=== PATIENT | male | born 1950 | race Caucasian/White ===

== ENCOUNTER → 2018-02-14 | Outpatient (CLI) | payer MEDICARE, BC ==
[2018-02-14 11:19] LABS: HCT 47.1 % (39.0-53.0); HGB 15.6 gm/dL (13.0-17.5); MCH 29.7 pg (25.0-35.0); MCHC 33.1 g/dL (31.0-37.0); MCV 89.8 fL (80.0-100.0); Mean Platelet Volume 7.1; Platelet Count 295 k/uL (150-450); RBC 5.25 m/uL (4.30-5.90); RDW 13.7 % (11.5-15.5)
[2018-02-14 17:16] LABS: Albumin 4.5 g/dL (3.80-4.90); Albumin/Globulin Ratio 2.81 (1.20-2.10); Calcium 9.5 mg/dL (8.7-10.3); Globulin 1.6 g/dL (2.1-3.7); LDL Cholesterol,Calculated 87.4 mg/dL (0.0-131.0); Potassium 4.2 mmol/L (3.5-5.5); Total Bilirubin 0.5 mg/dL (0.2-1.2); Total Protein 6.1 g/dL (6.2-8.2); VLDL Calculation 30.6 mg/dL (5.00-40.00)
== END | disposition home or self-care (01) ==
LOC: LABWHC1 10:21
PROVIDERS: ATTEND Internal Medicine
DX: E87.8 Other disorders of electrolyte and fluid balance, not elsewhere classified (principal); E78.41 Elevated Lipoprotein(a); N40.0 Benign prostatic hyperplasia without lower urinary tract symptoms; R53.83 Other fatigue
CPT/HCPCS: 80061; 80053; 85027; 36415; G0103

== ENCOUNTER → 2018-11-21 | Outpatient (CLI) | payer MEDICARE ==
[2018-11-21 11:09] LABS: Basophils # (A) 0.2 k/uL (0-0.2); Basophils % (A) 3 %; Eosinophils # (A) 0.2 k/uL (0-0.7); Eosinophils % (A) 3 %; HCT 45.2 % (39.0-53.0); Lymphocytes # (A) 1.8 k/uL (1.0-4.8); Lymphocytes % (A) 27 %; MCH 29.6 pg (25.0-35.0); MCHC 33.1 g/dL (31.0-37.0); MCV 89.5 fL (80.0-100.0); Mean Platelet Volume 7.4; Monocytes # (A) 0.4 k/uL (0-1.0); Monocytes % (A) 6 %; Neutrophils # (A) 3.9 k/uL (1.3-7.7); Neutrophils % (A) 59 %; Platelet Count 302 k/uL (150-450); RBC 5.05 m/uL (4.30-5.90); RDW 13.9 % (11.5-15.5); WBC 6.7 k/uL (3.8-10.6)
== END | disposition home or self-care (01) ==
LOC: LABPAT 09:18
PROVIDERS: ATTEND Surgery
DX: Z01.818 Encounter for other preprocedural examination (principal); Z01.812 Encounter for preprocedural laboratory examination; K43.2 Incisional hernia without obstruction or gangrene
CPT/HCPCS: 36415; 85025; 93005

== ENCOUNTER 2018-11-28 11:53 | Day surgery (SDC) | payer BC, MEDICARE ==
[2018-11-20 14:46] VITALS: BMI 26.3
[~2018-11-28 11:53] MED LIST: DEXAMETHASONE SOD PHOSPHATE 10 MG/ML 1 ML VIAL IV ONE; HEPARIN SODIUM,PORCINE 5,000 UNIT/ML 1 ML VIAL SQ ONE; HYDROmorphone 0.5 MG/0.5 ML SYRINGE IVP PRN; LIDOCAINE 1% 20 ML VIAL (10MG/ML) FOR IV START INTRADERMA PRN; ONDANSETRON 4 MG/2 ML VIAL IVP ONE; SCOPOLAMINE 1.5MG/72HR PATCH TRANSDERM ONE
[2018-11-28] MEDS: LACTATED RINGERS 1,000 ML IV SCH ×2 (12:59→19:57)
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
[2018-11-28] MEDS ORDERED: BUPIVACAINE (PF) 0.25% 30 ML VIAL SQ ONE (13:49)
--- NOTE | 2018-11-28 13:56 | P.ANPRN ---
Procedure Note - Anesthesia - Nerve Block Performed Bilateral Transversus Abdominis Single Time Out Performed: Yes Date of Procedure: 11/28/18 Procedure Start Time: 13:45 Procedure Stop Time: 13:55 Location of Patient Procedure: PreOp Indication: Acute Post-Operative Pain, Requested by Surgeon Sedation Type: Sedate with meaningful contact maintained Preparation: Sterile Prep Position: Supine Catheter: None Needle Types: Pajunk Needle Gauge: 21 Ultrasound used to visualize needle placement: Yes Ultrasound used to observe medication spread: Yes Injectate: 0.5% Ropivacaine (see comment for volume) (15 CC + 2MG DEXAMETHASONE PER SIDE) Blood Aspirated: No Pain Paresthesia on Injection Noted: No Resistance on Injection: Normal Image Stored and Saved: Yes Events: Uneventful and Well Tolerated
[2018-11-28] MEDS ORDERED: fentaNYL (PF) 50 MCG/ML 2 ML AMP ONE (13:59)
[2018-11-28] MEDS ORDERED: ROPIVACAINE 5 MG/ML 30 ML VIAL ONE (13:59)
[2018-11-28] MEDS ORDERED: MIDAZOLAM 2 MG/2 ML VIAL ONE (13:59)
[2018-11-28] MEDS ORDERED: ePHEDrine SULFATE/0.9% NACL/PF 50 MG/5 ML SYRINGE IV ONE (13:59)
[2018-11-28] MEDS ORDERED: GLYCOPYRROLATE 0.2 MG/ML 2 ML VIAL ONE (13:59)
[2018-11-28] MEDS ORDERED: PHENYLEPHRINE-0.9% NACL SYG 1 MG/10 ML SYRINGE ONE (13:59)
[2018-11-28] MEDS ORDERED: NEOSTIGMINE 1 MG/ML 10 ML VIAL ONE (13:59)
[2018-11-28] MEDS ORDERED: PROPOFOL 10 MG/ML 20 ML VIAL IV ONE (13:59)
[2018-11-28] MEDS ORDERED: ROCURONIUM BROMIDE 10 MG/ML 10 ML VIAL IV ONE (13:59)
[2018-11-28] MEDS ORDERED: DEXAMETHASONE SOD PHOSPHATE 4 MG/ML 1 ML VIAL ONE (13:59)
[2018-11-28] MEDS ORDERED: LIDOCAINE 1% INJ 10MG/ML (20 ML MDV) ONE (13:59)
[2018-11-28] MEDS ORDERED: LACTATED RINGERS 1,000 ML IV ONE ×2 (14:45→15:46)
[2018-11-28] MEDS ORDERED: TAMSULOSIN 0.4 MG CAP.ER.24H PO STA (15:52)
[2018-11-28] MEDS ORDERED: NALOXONE 0.4 MG/ML 1 ML VIAL IV PRN (15:57)
[2018-11-28] MEDS ORDERED: HYDROmorphone 0.5 MG/0.5 ML SYRINGE IVP PRN (15:57)
--- NOTE | 2018-11-28 16:01 | P.OP ---
Date of Procedure: 11/28/18 Procedure(s) Performed: PREOPERATIVE DIAGNOSIS: Incarcerated incisional hernia POSTOPERATIVE DIAGNOSIS: Same PROCEDURE: Incarcerated incisional hernia with mesh SURGEON: Guy EBL: Minimal ANESTHESIA: Gen. COMPLICATIONS: None OPERATIVE PROCEDURE: Patient placed on the operating table in the supine position. Abdomen was prepped and draped in usual sterile fashion. The previous incision was re-incised superiorly. Dissection through the subcutaneous tissues took place using electrocautery. A large hernia was identified. The hernia sac was carefully dissected down to the level of the fascia where it was excised. The patient had a total of 2 fascial openings. One measured about 2.5 cm in diameter the other measured about 1.5 cm in diameter. There was a thin bridge of fibrous tissue between the 2 fascial defects that was excised. Diameter of the fascial defect now was 5 x 3 cm. The 8 x 8 cm ventral ex mesh was then placed beneath the fascia. We did excise a portion of the omentum that was adherent to the hernia sac. The mesh was sutured to the fascia using trans-fascial 0 Ethibond sutures. Following that the fascia was reapproximated using interrupted vest over pants 0 Ethibond sutures. The folding edge was also sutured down using 0 Ethibond sutures. The subcutaneous tissues were closed using 20 and 3-0 Vicryl sutures. The skin was closed using 4-0 Monocryl suture. Skin glue and sterile dressings were applied. DISPOSITION: Stable to recovery room
[2018-11-28] MEDS ORDERED: HYDROmorphone 1 MG/ML 1 ML SYRINGE IVP ONE ×4 (16:02→16:28)
[2018-11-28] MEDS ORDERED: diphenhydrAMINE 50 MG/ML 1 ML VIAL IVP ONE (16:32)
[2018-11-28 17:12] VITALS: RESP 18
[2018-11-28] MEDS ORDERED: HYDROcodone/APAP 5-325MG 1 EACH TAB PO ONE ×2 (17:20→17:27)
[2018-11-28] MEDS: DOCUSATE 100 MG CAP PO SCH (20:54)
[2018-11-28] MEDS: HYDROcodone/APAP 5-325MG 1 EACH TAB PO PRN (23:25)
[2018-11-29] MEDS: HYDROcodone/APAP 5-325MG 1 EACH TAB PO PRN (07:50)
[2018-11-29] MEDS: DOCUSATE 100 MG CAP PO SCH (07:50)
[2018-11-29 10:26] VITALS: BP 142/71; PULSE 81; TEMP 97.9
--- NOTE | 2018-11-29 10:40 | P.DS ---
Providers Expected date of discharge: 11/29/18 Attending physician: Ahsan Tovar Primary care physician: Adolph Henriquez - Discharge Diagnosis(es) (1) Incisional hernia Patient doing well today. He was admitted yesterday evening for urinary retention after incisional hernia repair. She has minimal pain at this time. He is ambulate him. Voiding without difficulty. We'll discharge today. Plan outpatient follow-up in 1 week. Current Visit: Yes Status: Acute Plan - Discharge Summary Discharge Rx Participant: Yes New Discharge Prescriptions: New Hydrocodone/Acetaminophen [[place] 5-325] 1 tab PO Q6HR PRN 3 Days #10 tab PRN Reason: Pain No Action Aspirin 81 mg PO DAILY Tamsulosin [Flomax] 0.4 mg PO BID amLODIPine [Norvasc] 10 mg PO DAILY Losartan/Hydrochlorothiazide [Losartan-Hctz 100-25 mg Tab] 1 each PO DAILY Discharge Medication List Aspirin 81 mg PO DAILY 10/14/13 [History] Losartan/Hydrochlorothiazide [Losartan-Hctz 100-25 mg Tab] 1 each PO DAILY 11/20/18 [History] Tamsulosin [Flomax] 0.4 mg PO BID 11/20/18 [History] amLODIPine [Norvasc] 10 mg PO DAILY 11/20/18 [History] Hydrocodone/Acetaminophen [[place] 5-325] 1 tab PO Q6HR PRN 3 Days #10 tab 11/28/18 [Rx] Follow up Appointment(s)/Referral(s): Ahsan Tovar MD [Medical Doctor] - 12/03/18 3:20 pm Patient Instructions/Handouts: *Surgery [facility] - (Anesthesia) Discharge Instructions Outpatient Surgery
== END 2018-11-29 11:59 | disposition home or self-care (01) ==
LOC: OR 11:53 → 4SSUR 15:56 → OR 11-29 11:59
PROVIDERS: ATTEND Surgery
DX: K43.0 Incisional hernia with obstruction, without gangrene (principal); I10 Essential (primary) hypertension; M10.9 Gout, unspecified; K21.9 Gastro-esophageal reflux disease without esophagitis; N42.9 Disorder of prostate, unspecified; K57.90 Diverticulosis of intestine, part unspecified, without perforation or abscess without bleeding; F17.210 Nicotine dependence, cigarettes, uncomplicated; Z79.82 Long term (current) use of aspirin; Z79.899 Other long term (current) drug therapy; Z90.49 Acquired absence of other specified parts of digestive tract; Z90.89 Acquired absence of other organs; Z98.890 Other specified postprocedural states; Z86.010 Personal history of colon polyps; Z80.9 Family history of malignant neoplasm, unspecified; Z82.49 Family history of ischemic heart disease and other diseases of the circulatory system
CPT/HCPCS: 64488; 88305; 84132; 49561; 49568; C1781; J2250; J1200; J1644; J1100 ×2; J2710; J0690; J2405; J2001; J3010; J1170; J2795; J2370; J2704

== ENCOUNTER → 2022-11-24 | Outpatient (CLI) | payer MEDICARE ==
--- NOTE | 2022-11-24 17:08 | PE ---
EXAMINATION TYPE: PET CT fusion skull to thigh DATE OF EXAM: 11/24/2022 COMPARISON: NONE HISTORY: Solitary pulmonary nodule TECHNIQUE: Following the intravenous administration of 13.43 mCi of F-18 FDG, whole body images are performed from the skull base to the midthigh. Images are reviewed on the computer in the coronal, a xial, and sagittal planes. Reconstructed rotating images are created on independent workstation and reviewed on the computer. A localization and attenuation correction CT is performed in conjunction with the PET scan. Blood glucose level equals 98 SCAN: Initial Scan FINDINGS: SKULL BASE AND NECK: No areas of abnormal hypermetabolic uptake. CHEST, MEDIASTINUM, AND HILAR REGION: There are scattered small predominantly right-sided pulmonary n odules all measuring greater than 1 cm in size, for reference there are 4-5 nodules noted axial image 104. No abnormal hypermetabolic uptake is seen. No abnormal hypermetabolic uptake in the entire thor ax. ABDOMEN AND PELVIS: Normal excretion. No hypermetabolic adrenal masses. No abnormal hypermetabolic up take. OSSEOUS STRUCTURES: No abnormal hypermetabolic uptake. OTHER CT: Coronary artery calcification is present which is noted marker for underlying coronary belem ry disease. Moderate calcified plaque bilateral carotid bulb level is seen. Some colonic diverticula are present. Mild to moderate calcified plaque of the aorta extends into branch vessels. Moderate abiola rowing and spurring of both hip joints is seen. Multilevel spurring in the thoracolumbar spine is pre sent. IMPRESSION: Subcentimeter predominantly right-sided pulmonary nodules. No abnormal hypermetabolic nod ules or masses to suggest malignancy. Advise CT or PET CT follow-up in 6-12 months time to reassess.
== END | disposition home or self-care (01) ==
LOC: RADPETMAIN 10:53
PROVIDERS: ATTEND Internal Medicine
DX: R91.8 Other nonspecific abnormal finding of lung field (principal)
CPT/HCPCS: 78815; A9552

== ENCOUNTER → 2023-07-15 | Outpatient (CLI) | payer MEDICARE ==
[2023-07-15 14:42] LABS: African American GFR (CKD) >90 (>60 ml/min/1.73 sqM); Blood Urea Nitrogen 21 mg/dL (9-20); Non-African American GFR(CKD) 88 (>60 ml/min/1.73 sqM)
--- NOTE | 2023-07-15 18:26 | CT ---
EXAMINATION TYPE: CT chest w con CT DLP: 780 mGycm, Automated exposure control for dose reduction was used. DATE OF EXAM: 07/15/2023 3:13 PM : Chest radiograph from same day. Multiple CTs of the chest with most recent on . CLINICAL INDICATION:Male, 73 years old with history of R91.8 OTHER NONSPECIFIC ABNORMAL FINDING OF CARTER NG F; PHH, lung nodules TECHNIQUE: Multiple axial images were obtained through the chest. Sagittal and coronal reformats were created for review. Contrast used:100 mL of Isovue 300 with IV Contrast (None if empty) Oral contrast used: (None if empty) FINDINGS: LUNGS/ PLEURA: Several micronodules are identified in the right lower lobe. Direct comparison Is not possible due to differences in protocol between the current study and the PET/CT of 11/24/2022. W hile recognizing the limits of the 2 studies, the micronodules seen similar in size and number than b efore The lung parenchyma appears unremarkable. AIRWAY: Patent and unremarkable. Recommendations for Multiple solid nodules <6 mm (<100 mm3) . According to nodule size and risk categ ory of patient. low-risk patients: no routine follow-up required high-risk patients: optional CT at 12 months HEART: Size within normal limits. MEDIASTINUM: No gross evidence of adenopathy. VASCULATURE: No aortic aneurysm. MUSCULOSKELETAL: No acute osseous abnormalities SOFT TISSUES/LYMPH NODES: Unremarkable. LOWER NECK: No significant findings. UPPER ABDOMEN: No significant findings. IMPRESSION: Multiple tiny nodules in the right lower lobe are reidentified and appear stable. Recommendations for Multiple solid nodules <6 mm (<100 mm3) . According to nodule size and risk categ ory of patient. low-risk patients: no routine follow-up required high-risk patients: optional CT at 12 months Follow up recommendations for incidental pulmonary nodules, if there are any, are per [employer] or [employer]. https://radiopaedia.org/articles/fidinpjhgw-gllsoow-vyusuhowg-vscmbe-nvbafqjqlffblab-2?lang=us
== END | disposition home or self-care (01) ==
LOC: RADCTMAIN 13:51
PROVIDERS: ATTEND Internal Medicine
DX: R91.8 Other nonspecific abnormal finding of lung field (principal)
CPT/HCPCS: 82565; 84520; 71260; 36415; Q9967